=== PATIENT | male | born 1935 | race Caucasian/White ===

== ENCOUNTER 2017-07-10 09:55 | Emergency (ER) | payer OTHER ==
[~2017-07-10] VITALS: Ht 177.8 cm; Wt 101.9 kg
[~2017-07-10 09:55] MED LIST: ADULT LOW DOSE81 M1 PO; AMLODIPINE BESY10 MG PO; CADUET 10/101 TABLET PO; CIPRO500 MG PO; COZAAR100 MG PO; CYMBALTA60 MG PO; FLOMAX0.4 MG PO; GLIPIZIDE ER2.5 MG PO; HYDROCHLOROTHIA25 MG PO; HYZAAR 100-21 TABLET PO; IMDUR30 MG PO; ISOSORBIDE MONO60 MG PO; LIPITOR80 MG PO; LOPRESSOR25 MG PO; METOPROLOL TART25 MG PO; NITROSTAT0.4 MG SL; OMEPRAZOLE20 MG PO; OMEPRAZOLE40 M1 PO; PLAVIX75 MG PO; ZETIA10 MG PO
[2017-07-10 10:50] LABS: HEMATOCRIT 36.2 % (38.0-50.0); HEMOGLOBIN 12.4 G/DL (12.5-16.6); MCH 32.3 PG (29.0-34.0); MCHC 34.3 G/DL (30.0-36.0); MCV 94.3 FL (86-99); PLATELET COUNT 171 K/uL (156-360); RBC DIS.WIDTH-CV 13.8 % (11.8-14.6); RBC DIS.WIDTH-SD 46.8 % (39-53); RED BLOOD COUNT 3.84 M/uL (4.00-5.50); WHITE BLOOD COUNT 5.7 K/uL (4.1-10.2)
[2017-07-10 11:01] LABS: CHLORIDE 102 mEq/L (99-109); POTASSIUM 4.5 mEq/L (3.7-5.4); SODIUM 136 mEq/L (136-147)
[2017-07-10 11:02] LABS: GLUCOSE 278 mg/dL (70-99)
[2017-07-10 11:06] LABS: CREATININE 1.4 mg/dL (0.6-1.3); GFR ESTIMATE (CALCULATED) 52 mL/min/ (58.99-99999)
[2017-07-10 11:07] LABS: UREA NITROGEN (BUN) 22 mg/dL (9-23)
[2017-07-10 11:14] LABS: TROP-I INTERPRETATION NEGATIVE; TROPONIN-I < 0.01 ng/mL (0.0-0.30)
[2017-07-10] MEDS ORDERED: PROVENTIL HFA6.7 GM IH (12:22)
[2017-07-10] MEDS ORDERED: ZITHROMAX Z-PA250 MG PO (12:22)
[2017-07-10] MEDS ORDERED: MUCINEX DM ER1 EACH PO (12:22)
[2017-07-10 12:35] VITALS: BP 128/57
== END 2017-07-10 12:32 | disposition home or self-care (01) ==
LOC: EME 09:55
DX: J20.9 Acute bronchitis, unspecified (principal); I10 Essential (primary) hypertension; E78.5 Hyperlipidemia, unspecified; E11.9 Type 2 diabetes mellitus without complications; Z79.84 Long term (current) use of oral hypoglycemic drugs; Z79.02 Long term (current) use of antithrombotics/antiplatelets; Z79.82 Long term (current) use of aspirin; Z95.1 Presence of aortocoronary bypass graft; Z95.5 Presence of coronary angioplasty implant and graft; Z87.891 Personal history of nicotine dependence
CPT/HCPCS: 71020; 80048; 84484; 85027; 93005; 99281; 99284

== ENCOUNTER 2017-09-23 15:48 | Emergency (ER) | payer OTHER ==
[~2017-09-23] VITALS: Ht 180.3 cm; Wt 102.9 kg
[~2017-09-23 15:48] MED LIST changes: +MUCINEX DM ER1 EACH PO; +PROVENTIL HFA6.7 GM IH; +ZITHROMAX Z-PA250 MG PO
[2017-09-23] MEDS ORDERED: MORGIDOX100 MG PO (17:25)
[2017-09-23 18:18] VITALS: BP 129/86
== END 2017-09-23 18:23 | disposition home or self-care (01) ==
LOC: EME 15:48
PROVIDERS: Physician Assistant
DX: J20.9 Acute bronchitis, unspecified (principal); E11.9 Type 2 diabetes mellitus without complications; I10 Essential (primary) hypertension; E78.5 Hyperlipidemia, unspecified; K21.9 Gastro-esophageal reflux disease without esophagitis; I25.2 Old myocardial infarction; Z79.02 Long term (current) use of antithrombotics/antiplatelets; Z79.84 Long term (current) use of oral hypoglycemic drugs; Z87.891 Personal history of nicotine dependence; Z96.651 Presence of right artificial knee joint; Z95.1 Presence of aortocoronary bypass graft; Z95.9 Presence of cardiac and vascular implant and graft, unspecified; Z98.84 Bariatric surgery status; Z91.011 Allergy to milk products
CPT/HCPCS: 71046; 87502; 94640; 99281; 99284

== ENCOUNTER 2018-03-05 09:12 | Inpatient (IN) | payer OTHER ==
[~2018-03-05] VITALS: Ht 180.3 cm; Wt 99.8 kg
[~2018-03-05 09:12] MED LIST changes: +MORGIDOX100 MG PO
[2018-03-05 10:01] LABS: BASOPHIL (%) 0.3 % (0-1); EOSINOPHIL (%) 0.3 % (0-5); HEMATOCRIT 37.8 % (38.0-50.0); HEMOGLOBIN 13.1 G/DL (12.5-16.6); IMMATURE GRANULOCYTE (%) 0.6 % (0.0-0.7); LYMPHOCYTE (%) 3.5 % (15-42); LYMPHOCYTE COUNT 0.5 K/uL (1.0-2.8); MCH 32.7 PG (29.0-34.0); MCHC 34.7 G/DL (30.0-36.0); MCV 94.3 FL (86-99); MONOCYTE (%) 8.8 % (3-12); MONOCYTE COUNT 1.1 K/uL (0-0.8); NEUTROPHIL (%) 86.5 % (45-76); PLATELET COUNT 159 K/uL (156-360); RBC DIS.WIDTH-CV 13.3 % (11.8-14.6); RBC DIS.WIDTH-SD 45.8 % (39-53); RED BLOOD COUNT 4.01 M/uL (4.00-5.50); WHITE BLOOD COUNT 12.8 K/uL (4.1-10.2)
[2018-03-05 10:11] LABS: ALBUMIN 4.2 g/dL (3.2-4.8)
[2018-03-05 10:12] LABS: CHLORIDE 100 mEq/L (99-109); SODIUM 136 mEq/L (136-147)
[2018-03-05 10:14] LABS: GLUCOSE 282 mg/dL (70-99); TOTAL PROTEIN 6.9 g/dL (6.4-8.3)
[2018-03-05 10:17] LABS: ALKALINE PHOSPHATASE 77 IU/L (3-129); CREATININE 1.5 mg/dL (0.6-1.3); GFR ESTIMATE (CALCULATED) 48 mL/min/ (58.99-99999)
[2018-03-05 10:19] LABS: AST (GOT) 19 IU/L (2-34); UREA NITROGEN (BUN) 19 mg/dL (9-23)
[2018-03-05 10:20] LABS: ALT (GPT) 25 IU/L (3-49)
[2018-03-05] MEDS ORDERED: REPATHA SY140 MG/1 M SC (14:31)
[2018-03-05] MEDS ORDERED: AMARYL2 MG PO (14:32)
[2018-03-05] MEDS ORDERED: RANEXA500 MG PO (14:32)
[2018-03-05 16:39] VITALS: BP 148/69
[2018-03-05 19:47] VITALS: BP 147/61
[2018-03-06] VITALS (7 sets, daily range): BP systolic 119–161; BP diastolic 55–67
[2018-03-06 05:42] LABS: HEMATOCRIT 33.2 % (38.0-50.0); HEMOGLOBIN 11.4 G/DL (12.5-16.6); MCH 32.8 PG (29.0-34.0); MCHC 34.3 G/DL (30.0-36.0); MCV 95.4 FL (86-99); PLATELET COUNT 130 K/uL (156-360); RBC DIS.WIDTH-CV 13.6 % (11.8-14.6); RBC DIS.WIDTH-SD 47.9 % (39-53); RED BLOOD COUNT 3.48 M/uL (4.00-5.50); WHITE BLOOD COUNT 12.8 K/uL (4.1-10.2)
[2018-03-06 06:00] LABS: CHLORIDE 98 MEQ/L (99-109); CREATININE 1.3 MG/DL (0.6-1.3); GFR ESTIMATE (CALCULATED) 56 mL/min/ (58.99-99999); GLUCOSE 223 mg/dL (70-99); POTASSIUM 4.4 MEQ/L (3.7-5.4); SODIUM 133 MEQ/L (136-147); UREA NITROGEN (BUN) 22 mg/dL (9-23)
[2018-03-06 08:17] LABS: APPEARANCE CLEAR ((CLEAR)); BILIRUBIN NEGATIVE; BLOOD NEGATIVE; COLOR AMBER ((YELLOW)); GLUCOSE (STRIP) NEGATIVE; KETONES NEGATIVE; LEUKOCYTES SMALL; NITRITE NEGATIVE; PROTEIN (STRIP) NEGATIVE; SPECIFIC GRAVITY 1.023 (1.000-1.030); UROBILINOGEN 0.2 MG/DL (0.2-1.0)
[2018-03-06 08:23] LABS: BACTERIA RARE /HPF; EPITHELIAL CELLS RARE /HPF; MUCUS TRACE /LPF; RED BLOOD CELLS 0-5 /HPF (0-5); UCUL ADDED? YES; WHITE BLOOD CELLS TNTC /HPF (0-5)
[2018-03-07 04:05] VITALS: BP 119/57
[2018-03-07 05:52] LABS: HEMATOCRIT 33.6 % (38.0-50.0); HEMOGLOBIN 11.4 G/DL (12.5-16.6); MCHC 33.9 G/DL (30.0-36.0); MCV 94.4 FL (86-99); PLATELET COUNT 154 K/uL (156-360); RBC DIS.WIDTH-CV 13.1 % (11.8-14.6); RBC DIS.WIDTH-SD 45.1 % (39-53); RED BLOOD COUNT 3.56 M/uL (4.00-5.50); WHITE BLOOD COUNT 8.6 K/uL (4.1-10.2)
[2018-03-07 06:17] LABS: CHLORIDE 97 MEQ/L (99-109); CREATININE 1.4 MG/DL (0.6-1.3); GFR ESTIMATE (CALCULATED) 52 mL/min/ (58.99-99999); GLUCOSE 242 mg/dL (70-99); POTASSIUM 4.5 MEQ/L (3.7-5.4); SODIUM 134 MEQ/L (136-147); UREA NITROGEN (BUN) 24 mg/dL (9-23)
[2018-03-07 07:28] VITALS: BP 138/58
[2018-03-07] MEDS ORDERED: AZITHROMYCIN250 MG PO (11:49)
[2018-03-07] MEDS ORDERED: CEFTIN500 MG PO (11:52)
[2018-03-07] MEDS ORDERED: AMARYL4 MG PO (11:53)
== END 2018-03-07 13:22 | disposition home or self-care (01) | DRG 871 ==
LOC: EME 09:12 → EDOF 14:16 → 5SOUTH 14:16 → ENRESERV 14:17 → 5SOUTH 16:16
PROVIDERS: Emergency Medicine; Family Medicine; Hospitalist
DX: A41.9 Sepsis, unspecified organism (principal); J18.9 Pneumonia, unspecified organism; N39.0 Urinary tract infection, site not specified; I12.9 Hypertensive chronic kidney disease with stage 1 through stage 4 chronic kidney disease, or unspecified chronic kidney disease; N18.3 Chronic kidney disease, stage 3 (moderate); E11.22 Type 2 diabetes mellitus with diabetic chronic kidney disease; E11.65 Type 2 diabetes mellitus with hyperglycemia; I25.10 Atherosclerotic heart disease of native coronary artery without angina pectoris; R09.02 Hypoxemia; R11.2 Nausea with vomiting, unspecified; R32 Unspecified urinary incontinence; E78.5 Hyperlipidemia, unspecified; K21.9 Gastro-esophageal reflux disease without esophagitis; I25.2 Old myocardial infarction; Z95.1 Presence of aortocoronary bypass graft; Z95.5 Presence of coronary angioplasty implant and graft; Z96.651 Presence of right artificial knee joint; Z87.891 Personal history of nicotine dependence
CPT/HCPCS: 71045; 71046; 74176; 80048; 80053; 81003; 82948; 83605; 85025; 85027; 87040; 87086; 93005; 94799; 99281; 99285; J0456; J0696; J2405